=== PATIENT | female | born 1995 | race Asian ===

== ENCOUNTER 2016-08-28 19:45 | Emergency (ER) | payer BC ==
[~2016-08-28] VITALS: Ht 157.5 cm; Wt 88.5 kg
[2016-08-28 20:00] VITALS: TEMP 36.7; Ht 157.5 cm; Wt 88.5 kg
[2016-08-28] MEDS ORDERED: ONDANSETRON INJ 2 MG/ML 2 ML VIAL IV STA (20:21)
[2016-08-28] MEDS ORDERED: SODIUM CHLORIDE 0.9% 1000ML 1,000 ML IV STA (20:21)
[2016-08-28 20:45] LABS: BASO % 0.1 %; BASO ABS # 0.01 K/uL (0-0.2); COMPLETE YES; EOS % 0.2 %; HEMATOCRIT 39.9 % (37-47); IG% 0.2 %; LYMPH % 5.3 %; LYMPH ABS # 0.68 K/uL (1.2-3.4); MEAN CELL VOLUME 93.7 fL (80-100); MEAN CORPUSCULAR HEMOGLOBIN 31.9 pg (25-34); MEAN CORPUSCULAR HGB CONC 34.1 g/dl (32-36); MEAN PLATELET VOLUME 10.2 fL (7.4-10.4); MONO % 3.4 %; NEUT % 90.8 %; PLATELET COUNT 272 K/uL (130-400); RED BLOOD COUNT 4.26 M/uL (4.2-5.4); WHITE BLOOD COUNT 12.88 K/uL (4.8-10.8)
[2016-08-28 20:52] LABS: URINE APPEARANCE TURBID (CLEAR); URINE BILIRUBIN NEG (NEG); URINE COLOR YELLOW; URINE EPITHELIAL CELL AUTO >30 /lpf (0-5); URINE NITRITE NEG (NEG); URINE PH 8.5 (4.5-7.5); URINE SPECIFIC GRAVITY 1.028 (1.000-1.030); UROBILINOGEN NEG (NEG)
[2016-08-28 20:53] LABS: MANUAL MICROSCOPIC REQUIRED? NO; REVIEW REQ? YES
[2016-08-28 21:00] LABS: SULFASALICYLIC ACID POS (NEG)
[2016-08-28 21:05] LABS: BUN/CREATININE RATIO 12.8 (10-20); CALCIUM 9.1 mg/dl (8.5-10.1); CREATININE 0.87 mg/dl (0.60-1.20); POTASSIUM 3.8 mmol/L (3.5-5.1)
[2016-08-28] MEDS ORDERED: CIPROFLOXACIN 500 MG TAB PO STA (21:17)
[2016-08-28] MEDS ORDERED: ONDANSETRON HOME PACK 4MG OD TAB PO ONE (21:30)
[2016-08-28] MEDS ORDERED: CIPR-255 PO (21:45)
[2016-08-28] MEDS ORDERED: ONDA4TAB10 SL (21:45)
[2016-08-28 21:51] VITALS: BP 108/62; PULSE 76; O2SAT 98
--- NOTE | 2016-08-28 23:17 | EMERGENCY ROOM VISIT NOTE ---
History Report prepared by Julietaibnupur: Saw David Under the Supervision of: Dr. Bhanu Cano M.D. First contact with patient: 20:10 Chief Complaint: VOMITING Stated Complaint: THROWING UP Nursing Triage Summary: Patient "went out last night, vomited once last night and now it just keeps happening" Patient notes that she is throwing up mucous now. History of Present Illness The patient is a 21 year old female who presents to the Emergency Room with complaints of persistent vomiting since 0300 this morning. The patient believes that she had up to 15 episodes of vomiting. The patient also complains of nausea and mild abdominal pain. She denies fevers, diarrhea, urinary symptoms, or rashes. She did have a bowel movement today which was normal. She admits that she had a lot to drink last night, but does not normally vomit this much when she drinks in excess. The patient denies any past surgeries of the abdomen. LNMP was three weeks ago, which was normal in timing. She denies the possibility of . She has no other complaints and denies any medical problems. She has not had any recent medication changes. She does not take any drugs other than alcohol. Source of History: patient Onset: 299 this morning Position: other (GI) Quality: other (vomiting) Timing: other (persistent) Associated Symptoms: + abdominal pain, + nausea, No diarrhea, No fevers, No rash, No urinary symptoms Review of Systems See HPI for pertinent positives & negatives. A total of 10 systems reviewed and were otherwise negative. Social History Smoking Status: Never Smoker Alcohol Use: occasionally Housing Status: lives with roommate Occupation Status: [employer] student Current/Historical Medications Scheduled Ciprofloxacin Hcl (Cipro), 500 MG PO BID Ondasetron Odt (Zofran Odt), 4 MG SL Q6H Allergies Coded Allergies: No Known Allergies (Unverified , 08/28/16) Physical Exam Vital Signs Date Time Temp Pulse Resp B/P Pulse Ox O2 Delivery O2 Flow Rate FiO2 08/28/16 21:51 76 16 108/62 98 08/28/16 20:00 36.7 109 19 119/61 95 Room Air Physical Exam Constitutional: Vital signs reviewed. Eyes: Pupils are equal round reactive to light. Conjunctiva are noninjected. ENT: Pharynx is clear without erythema or exudate. Mucous membranes are dry. Neck supple without meningeal signs. Respiratory: Clear to auscultation bilaterally. Breath sounds are equal bilaterally. Cardiovascular: Regular rate and rhythm. No rubs or gallops. GI: Soft, nondistended. Mild diffuse upper abdominal tenderness, no guarding. Bowel sounds are present. Musculoskeletal: No peripheral edema. No lower extremity tenderness. No CVA tenderness. Integumentary: No cyanosis. Neurological: The patient is awake and alert. No focal deficits. Psychiatric: Normal affect. Medical Decision & Procedures Laboratory Results 08/28/16 20:20 Red Blood Count 4.26, Mean Corpuscular Volume 93.7, Mean Corpuscular Hemoglobin 31.9, Mean Corpuscular Hemoglobin Concent 34.1, Mean Platelet Volume 10.2, Neutrophils (%) (Auto) 90.8, Lymphocytes (%) (Auto) 5.3, Monocytes (%) (Auto) 3.4, Eosinophils (%) (Auto) 0.2, Basophils (%) (Auto) 0.1, Neutrophils # (Auto) 11.70, Lymphocytes # (Auto) 0.68, Monocytes # (Auto) 0.44, Eosinophils # (Auto) 0.02, Basophils # (Auto) 0.01 08/28/16 20:20 Test 08/28/16 00:00 08/28/16 20:20 Urine Color YELLOW Urine Appearance TURBID (CLEAR) Urine pH 8.5 (4.5-7.5) Urine Specific [place] 1.028 (1.000-1.030) Urine Protein 2+ (NEG) Urine Glucose (UA) NEG (NEG) Urine Ketones TRACE (NEG) Urine Occult Blood NEG (NEG) Urine Nitrite NEG (NEG) Urine Bilirubin NEG (NEG) Urine Urobilinogen NEG (NEG) Urine Leukocyte Esterase TRACE (NEG) Urine WBC (Auto) 10-30 /hpf (0-5) Urine RBC (Auto) 5-10 /hpf (0-4) Urine Hyaline Casts (Auto) 1-5 /lpf (0-5) Urine Epithelial Cells (Auto) >30 /lpf (0-5) Urine Bacteria (Auto) 2+ (NEG) Urine Renal Epithelial Cells 0-5 /lpf (0-5) Urine Pathogenic Casts /lpf (0) Urine Test NEG (NEG) White Blood Count 12.88 K/uL (4.8-10.8) Red Blood Count 4.26 M/uL (4.2-5.4) Hemoglobin 13.6 g/dL (12.0-16.0) Hematocrit 39.9 % (37-47) Mean Corpuscular Volume 93.7 fL (80-100) Mean Corpuscular Hemoglobin 31.9 pg (25-34) Mean Corpuscular Hemoglobin Concent 34.1 g/dl (32-36) Platelet Count 272 K/uL (130-400) Mean Platelet Volume 10.2 fL (7.4-10.4) Neutrophils (%) (Auto) 90.8 % Lymphocytes (%) (Auto) 5.3 % Monocytes (%) (Auto) 3.4 % Eosinophils (%) (Auto) 0.2 % Basophils (%) (Auto) 0.1 % Neutrophils # (Auto) 11.70 K/uL (1.4-6.5) Lymphocytes # (Auto) 0.68 K/uL (1.2-3.4) Monocytes # (Auto) 0.44 K/uL (0.11-0.59) Eosinophils # (Auto) 0.02 K/uL (0-0.5) Basophils # (Auto) 0.01 K/uL (0-0.2) RDW Standard Deviation 41.2 fL (36.4-46.3) RDW Coefficient of Variation 12.2 % (11.5-14.5) Immature Granulocyte % (Auto) 0.2 % Immature Granulocyte # (Auto) 0.03 K/uL (0.00-0.02) Anion Gap 8.0 mmol/L (3-11) Est Creatinine Clear Calc Drug Dose 104.8 ml/min Estimated GFR () 109.6 Estimated GFR (Non- 94.6 BUN/Creatinine Ratio 12.8 (10-20) Calcium Level 9.1 mg/dl (8.5-10.1) Total Bilirubin 0.4 mg/dl (0.2-1) Direct Bilirubin 0.1 mg/dl (0-0.2) Aspartate Amino Transf (AST/SGOT) 24 U/L (15-37) Alanine Aminotransferase (ALT/SGPT) 42 U/L (12-78) Alkaline Phosphatase 74 U/L (45-117) Total Protein 7.8 gm/dl (6.4-8.2) Albumin 4.1 gm/dl (3.4-5.0) Lipase 77 U/L (73-393) Laboratory results as reviewed by me. Medications Administered Medications (Trade) Dose Ordered Sig/Maria Alejandra Route Start Time Stop Time Status Last Admin Dose Admin Ondansetron HCl 4 mg 4 mg NOW STAT IV 08/28/16 20:21 08/28/16 20:23 DC 08/28/16 20:34 4 MG Sodium Chloride (Nss 1000ml) 1,000 ml @ 999 mls/hr Q1H1M STAT IV 08/28/16 20:21 08/28/16 21:21 DC 08/28/16 20:34 999 MLS/HR Ciprofloxacin (Cipro Tab) 500 mg NOW STAT PO 08/28/16 21:17 08/28/16 21:18 DC 08/28/16 21:17 500 MG Ondansetron HCl (ZOFRAN ODT 4MG Home Pack) 1 homepack UD ONCE PO 08/28/16 21:30 08/28/16 21:31 DC 08/28/16 21:30 1 HOMEPACK ED Course 2018: The patient was evaluated in room C12b. A complete history and physical exam was performed. 2020: NSS 1000 ml @ 999 mls/hr, Zofran 4 mg IV. 2109: The patient is feeling better and drinking water. She still has some upper abdominal tenderness without guarding on reexamination. There is no CVA tenderness. 2116: Cipro 500 mg PO. 2129: Zofran Odt 4 mg PO homepack. Medical Decision This is a 21-year-old female who presents with vomiting after drinking and excessive amount of alcohol. Differential diagnosis includes gastritis, alcohol overdose, pancreatitis, metabolic derangement, dehydration, electrolyte abnormality. I did perform a limited focused review of portions of the patient' s old chart on the electronic medical record. The patient has had no prior visits to this hospital. I did evaluate the patient as noted above. The patient is presenting with multiple episodes of vomiting after drinking a large amount of alcohol last night. She has some mild upper abdominal tenderness with no signs of a surgical abdomen. IV access was established. I did treat the patient with IV Zofran and normal saline. I did order and personally review the patient's urinalysis as described above. She does have signs of infection. Urine test was negative. I did order and review the patient's blood work as noted in the electronic medical record. Her white blood cell count was slightly elevated. I did reevaluate the patient. She does state she is feeling better. I did discuss the test results with her. At this time her symptoms seem consistent with a pyelonephritis. I did recommend embolic treatment with Cipro and gave her precautions regarding this medication. She was discharged with a prescription for Cipro and Zofran. She was advised follow closely with [facility] and given return instructions as outlined below. Impression Primary Impression: Pyelonephritis Additional Impression: Vomiting Scribe Attestation The scribe's documentation has been prepared under my direct and personally reviewed by me in its entirety. I confirm that the note above accurately reflects all work, treatment, procedures, and medical decision making performed by me. Departure Information Dispostion Home / Self-Care Prescriptions Ondasetron Odt (ZOFRAN ODT) 4 Mg Tab 4 MG SL Q6H for Nausea, #6 TAB Prov: Bhanu Cano M.D. 08/28/16 Ciprofloxacin Hcl (CIPRO) 500 Mg Tab 500 MG PO BID, #13 TAB Prov: Bhanu Cano M.D. 08/28/16 Referrals No Doctor, Assigned (PCP) Forms HOME CARE DOCUMENTATION FORM, IMPORTANT VISIT INFORMATION Patient Instructions My [facility], Pyelonephritis Dc Additional Instructions You have been examined and treated today on an emergency basis only. This is not a substitute for, or an effort to provide, complete comprehensive medical care. It is impossible to recognize and treat all injuries or illnesses in a single emergency department visit. It is therefore important that you follow up closely with [facility] early next week. Call as soon as possible for an appointment. Return for worsening symptoms or if you develop fever or any other concerning symptoms. Problem Qualifiers Additional Impression: Vomiting Vomiting type: unspecified Vomiting Intractability: non-intractable Nausea presence: with nausea Qualified Codes: R11.2 - Nausea with vomiting, unspecified
== END 2016-08-28 21:51 | disposition home or self-care (01) ==
LOC: C.EDB 19:48 → C.EDC 21:51
DX: N12 Tubulo-interstitial nephritis, not specified as acute or chronic (principal); R11.2 Nausea with vomiting, unspecified

== ENCOUNTER 2016-09-05 01:34 | Emergency (ER) | payer BC ==
[~2016-09-05] VITALS: Ht 157.5 cm; Wt 92.8 kg
[~2016-09-05 01:34] MED LIST: CIPR-255 PO; ONDA4TAB10 SL
[2016-09-05 01:39] VITALS: TEMP 37.1; Ht 157.5 cm; Wt 92.8 kg
--- NOTE | 2016-09-05 02:37 | EMERGENCY ROOM VISIT NOTE ---
ED Visit Note First contact with patient: 01:43 Chief Complaint: Bruise, Pain Aching History of Present Illness: Patient is a 21-year-old female who presents to the emergency department for evaluation of a bruise to her RIGHT buttock. She reports that last evening while out drinking, she slipped while ambulating down the steps to a bar landed on her buttocks. She did not strike her head. She did not lose consciousness. She's had immediate pain and worsening pain to the RIGHT buttocks. She reports pain with ambulation. She denies any numbness or tingling into the distal extremity. She rates her current discomfort as a 5/ 10. She is tried Motrin with moderate relief of symptoms. She spoke with her father, a nurse, who directed her to the emergency Department for further evaluation and management. She denies any back pain, knee pain, ankle pain, or other extremity injury. Medications: Reviewed and discussed with the patient. Allergies: No known allergies. PMH: No pertinent past medical history. SHx: Patient is a 21-year-old female [employer] student who lives with roommates. ROS: All pertinent positive and negative review of systems are appropriately documented in the History of Present Illness. Physical Exam: VITAL SIGNS - Vital signs and nursing notes were reviewed. GENERAL - 21-year-old female appearing her stated age and in noticeable discomfort throughout the exam. SKIN (nurse jewelry sales present throughout entire exam) - Large 6 cm x 2.5 cm area of ecchymosis noted to the upper portion of the RIGHT buttocks. No fluctuance to palpation. No warmth to touch. No erythema. No lip imaging streaking. Minimal tenderness to palpation. NECK - FROM of the cervical spine. ABDOMEN - Abdominal contour obese without pulsations or visible masses. BS normoactive all four quadrants. No tenderness, palpable masses, hepatosplenomegaly, or ascites noted. MUSCULOSKELETAL - ROM of the lumbar spine region was assessed as full. Pt was seated on the exam table. Pt made fluent movements when asked to change position. No step-off deformities were palpated down the thoracolumbar spines. No Tenderness to Palpation experienced in the thoracic or lumbar paraspinal muscle distribution. No reproducible tenderness to palpation across the iliac spine. NEUROLOGIC - REFLEXES: +3/4 patellar reflexes B/L,. SENSORY: Spinothalamic tract was found to be intact with ability to discriminate sharp versus dull sensation at the level of hip joint down do the great toe. No sensory defects of the dorsal column were appreciated utilizing light touch for evaluation. CEREBELLAR: Pt able to perform rapid alternating movements of the feet. EXTREMITIES - Range of Motion - No tremors, ticks, or fasciculations of the lower extremities noticed during inspection. FROM of the lower extremities. Tenderness to palpation noted to the lateral portion of the RIGHT sided hip. No clonus noted with PROM of the lower extremities bilaterally. Pt had +5/5 strength appreciated bilaterally in the lower extremities against examiner's resistance. VASCULAR - Capillary refill of the great toe was brisk. No mottling or blanching of the extremities present. +3/5 dorsalis pedis pulses palpated bilaterally. IMAGING: RIGHT HIP UNILATERAL 2 VIEWS CLINICAL HISTORY: Right hip pain following fall. COMPARISON: None FINDINGS: Alignment of the right hip is anatomic. There is no acute fracture. There is no fracture within visualized portions of the right hemipelvis. IMPRESSION: No acute fracture or dislocation of the right hip. ED Course: Patient was seen and evaluated by myself. X-ray of the affected hip was obtained. Imaging results above. Imaging results were reviewed with the patient who acknowledges understanding. The patient was encouraged to follow- up with her primary care provider from today's visit. She requests visit results to confront a bar door hanger for the wet steps. She was instructed to follow -up with medical records. She was educated on worrisome symptoms for return visit to the emergency department. Patient discharged home in good condition. In the evaluation and treatment of this patient, the following differential diagnoses were considered: Hip Fracture, Hip Dislocation, Greater Trochanteric Bursitis, Musculoskeletal Pain, Lumbar Radiculopathy. Impression: RIGHT Buttock Contusion, Fall Discharge Instructions: You have been treated in the Emergency Department for a RIGHT Buttock Contusion. For pain control, you can use the following [id number] medicines (if >12 yo): - Regular strength (325mg/tab) Tylenol (acetaminophen) 2 tabs every 4-6 hours as needed. Do not exceed 12 tablets in a 24 hour period. Avoid taking more than 4 grams (4000 mg) of Tylenol per day. This includes any other sources of acetaminophen you may take on a regular basis. - Regular strength (200 mg/tab) Advil (ibuprofen) 1-2 tabs every 4-6 hours as needed. Do not exceed a dose of 3200 mg per day. If this is a recent injury (<24 hrs), ice can be applied to the area of pain for the first 3 days to help decrease pain and inflammation. Ice massages can be performed by freezing water in a paper cup, peeling back the cup to expose the ice and then massaging over the affected area. Return to the Emergency Department if your current symptoms worsen despite treatment course outlined above. Current/Historical Medications Scheduled Ciprofloxacin Hcl (Cipro), 500 MG PO BID Ondasetron Odt (Zofran Odt), 4 MG SL Q6H Allergies Coded Allergies: No Known Allergies (Unverified , 09/05/16) Vital Signs Date Time Temp Pulse Resp B/P Pulse Ox O2 Delivery O2 Flow Rate FiO2 09/05/16 02:44 70 20 90/53 99 09/05/16 01:39 37.1 78 16 111/56 98 Room Air Departure Information Impression Primary Impression: Contusion of buttock Additional Impression: Fall Dispostion Home / Self-Care Condition GOOD Referrals [facility] (PCP) Patient Instructions My [facility] Additional Instructions You have been treated in the Emergency Department for a RIGHT Buttock Contusion. For pain control, you can use the following [id number] medicines (if >12 yo): - Regular strength (325mg/tab) Tylenol (acetaminophen) 2 tabs every 4-6 hours as needed. Do not exceed 12 tablets in a 24 hour period. Avoid taking more than 4 grams (4000 mg) of Tylenol per day. This includes any other sources of acetaminophen you may take on a regular basis. - Regular strength (200 mg/tab) Advil (ibuprofen) 1-2 tabs every 4-6 hours as needed. Do not exceed a dose of 3200 mg per day. If this is a recent injury (<24 hrs), ice can be applied to the area of pain for the first 3 days to help decrease pain and inflammation. Ice massages can be performed by freezing water in a paper cup, peeling back the cup to expose the ice and then massaging over the affected area. Return to the Emergency Department if your current symptoms worsen despite treatment course outlined above. Problem Qualifiers Primary Impression: Contusion of buttock Encounter type: initial encounter Qualified Codes: S30.0XXA - Contusion of lower back and pelvis, initial encounter Additional Impression: Fall Encounter type: initial encounter Qualified Codes: W19.XXXA - Unspecified fall, initial encounter
[2016-09-05 02:44] VITALS: BP 90/53; PULSE 70; O2SAT 99
--- NOTE | 2016-09-05 08:19 | DIAGNOSTIC IMAGING REPORT ---
RIGHT HIP UNILATERAL 2 VIEWS CLINICAL HISTORY: Right hip pain following fall. COMPARISON: None FINDINGS: Alignment of the right hip is anatomic. There is no acute fracture. There is no fracture within visualized portions of the right hemipelvis. IMPRESSION: No acute fracture or dislocation of the right hip. Electronically signed by: Khahn Werner M.D. 09/05/2016 8:18 AM Dictated Date/Time: 09/05/2016 8:17 AM
== END 2016-09-05 02:44 | disposition home or self-care (01) ==
LOC: C.EDB 01:36
DX: S30.0XXA Contusion of lower back and pelvis, initial encounter (principal); M25.551 Pain in right hip; W10.9XXA Fall (on) (from) unspecified stairs and steps, initial encounter; Y92.89 Other specified places as the place of occurrence of the external cause